=== PATIENT | female | born 1960 ===

== ENCOUNTER 2022-03-29 14:32 | Emergency (ER) | payer MEDICARE ==
[~2022-03-29] VITALS: Ht 165.1 cm; Wt 86.0 kg
[~2022-03-29 14:32] MED LIST: epiNEPHrine 0.1mg/ml 10ml syringe ONE; sodium bicarbonate (8.4%) 1 mEq/ml syringe ONE
[2022-03-29] MEDS ORDERED: iohexol 350MG/ML 100ml bottle IV ONE (14:52)
[2022-03-29 14:58] LABS: BASOPHILS # (AUTO) 0.1 X10'3 (0-0.2); EOSINOPHILS # (AUTO) 0.3 X10'3 (0-0.9); LYMPHOCYTES # (AUTO) 5.6 X10'3 (1.1-4.8); MEAN PLATELET VOLUME 8.2 FL (7.4-10.4); MONOCYTES # (AUTO) 0.7 X10'3 (0-0.9)
[2022-03-29 15:00] LABS: BASOPHILS % (AUTO) 0.7 % (0-1); EOSINOPHILS % (AUTO) 2.5 % (0-6); HEMOGLOBIN 12.7 g/dl (12.0-16.0); LYMPHOCYTES % (AUTO) 54.3 % (21-51); MONOCYTES % (AUTO) 6.9 % (2-12); NEUTROPHILS # (AUTO) 3.7 X10'3 (1.8-7.7); NEUTROPHILS % (AUTO) 35.6 % (42-75); PLATELET COUNT 175 X10'3 (140-440); WHITE BLOOD COUNT 10.4 X10'3 (4.5-11.0)
[2022-03-29] MEDS ORDERED: epiNEPHrine 1 mg/ml inj SQ ONE (15:08)
[2022-03-29 15:09] LABS: APTT 33 SECONDS (22-32)
[2022-03-29 15:22] LABS: ALANINE AMINOTRANSFERASE 58 U/L (12-78); ALBUMIN 2.7 G/DL (3.4-5.0); ALBUMIN/GLOBULIN RATIO 1.1 (1.1-1.5); ALKALINE PHOSPHATASE 92 IU/L (46-116); ANION GAP 18 (8-16); ASPARTATE AMINO TRANSFERASE 66 U/L (10-37); BILIRUBIN,TOTAL 0.3 MG/DL (0.1-1.0); BLOOD UREA NITROGEN 19 MG/DL (7-18); BUN/CREATININE RATIO 15.7 (6.6-38.0); CHLORIDE 113 MMOL/L (99-107); CREATININE 1.21 MG/DL (0.40-0.90); GLUCOSE 140 MG/DL (70-104); MAGNESIUM 1.9 MG/DL (1.5-2.4); SODIUM 151 MMOL/L (135-145); TOTAL PROTEIN 5.2 G/DL (6.4-8.2); eGFR 45 ML/MIN
[2022-03-29 15:27] LABS: HEMATOCRIT 38.5 % (35.0-45.0); MEAN CORPUSCULAR HEMOGLOBIN 30.8 PG (27.0-31.0); MEAN CORPUSCULAR HGB CONC 32.9 g/dL (33.0-36.5); MEAN CORPUSCULAR VOLUME 93.7 FL (78-98); RED BLOOD COUNT 4.11 X10'6 (4.20-5.60)
[2022-03-29 15:28] LABS: RED CELL DISTRIBUTION WIDTH 13.6 % (11.5-14.5)
--- NOTE | 2022-03-29 15:55 | NUR ---
SISTER OF PATIENT, VIKAS JIMENEZ, WAS PRESENT AT THE HOSPITAL AND SPOKE WITH DR. VALENCIA, BUT HAS LEFT THE HOSPITAL NOW. VIKAS CONTACT PHONE NUMBER IS . MESSAGELEFT ON SISTER'S PHONE TO CALL BACK TO GIVE INFORMATION RE: MORTUARY.
[2022-03-29 16:26] LABS: ANISOCYTOSIS FEW; ELLIPTOCYTES FEW; NUCLEATED RED BLOOD CELLS 1 /100WBC (0-0); PLATELET ESTIMATE NORMAL; SPHEROCYTES 1+; TOTAL CELLS COUNTED 100
[2022-03-29 16:27] LABS: SMUDGE CELLS 1+
== END 2022-03-29 17:49 ==
LOC: EDBD 14:32 → ER 14:32
DX: I46.9 Cardiac arrest, cause unspecified (principal); F15.20 Other stimulant dependence, uncomplicated; F17.200 Nicotine dependence, unspecified, uncomplicated
CPT/HCPCS: 31500; 36415; 71045; 80053; 83735; 83880; 84484; 85007; 85025; 85610; 85730; 92950; 93005; 99291; J0171; J3490; 94002; Q9967